=== PATIENT | female | born 1990 | race Caucasian/White ===

== ENCOUNTER → 2022-11-15 | Outpatient (CLI) | payer OTHER | END | disposition home or self-care (01) | LOC: NST 16:40 | PROVIDERS: ATTEND Obstetrics & Gynecology Gynecology | DX: Z34.83 Encounter for supervision of other normal pregnancy, third trimester (principal) ==

== ENCOUNTER 2022-11-26 17:35 | Outpatient (CLI) | payer OTHER ==
[~2022-11-26] VITALS: Ht 157.5 cm; Wt 81.6 kg
[2022-11-26] MEDS ORDERED: PEPCID AC20 MG PO (18:20)
[2022-11-26] MEDS ORDERED: PRENATAL TABLE1 EAC4 PO (18:20)
[2022-11-26] MEDS ORDERED: VALACYCLOVIR1000 MG PO (18:22)
== END 2022-11-27 11:10 | disposition home or self-care (01) ==
LOC: OBS/DEL 17:35 → LDR 17:35 → OBS/DEL 11-27 11:10 → LDR 11-27 11:10 → EDSTATUS 11-28 15:27
PROVIDERS: ATTEND Obstetrics & Gynecology Gynecology
PROC: 4A1HXCZ Monitoring of Products of Conception, Cardiac Rate, External Approach (ICD-10-PCS; principal; 2022-11-26)
DX: O16.2 Unspecified maternal hypertension, second trimester (principal); Z3A.37 37 weeks gestation of pregnancy; Z20.822 Contact with and (suspected) exposure to COVID-19

== ENCOUNTER 2022-11-29 14:21 | Inpatient (IN) | payer OTHER ==
[~2022-11-29] VITALS: Ht 157.5 cm; Wt 79.8 kg
[~2022-11-29 14:21] MED LIST: PEPCID AC20 MG PO; PRENATAL TABLE1 EAC4 PO; VALACYCLOVIR1000 MG PO
== END 2022-12-01 11:32 | disposition home or self-care (01) | DRG 833 ==
LOC: LDR 14:21 → OB/GYN 19:57
PROVIDERS: ADMIT Obstetrics & Gynecology Gynecology; ATTEND Obstetrics & Gynecology Gynecology
PROC: 4A1HXCZ Monitoring of Products of Conception, Cardiac Rate, External Approach (ICD-10-PCS; principal; 2022-11-29)
DX: O16.3 Unspecified maternal hypertension, third trimester (principal); Z3A.37 37 weeks gestation of pregnancy; Z20.822 Contact with and (suspected) exposure to COVID-19

== ENCOUNTER 2022-12-03 12:49 | Inpatient (IN) | payer OTHER ==
[~2022-12-03] VITALS: Ht 157.5 cm; Wt 1.8 kg
== END 2022-12-06 13:31 | disposition home or self-care (01) | DRG 807 ==
LOC: LDR 12:49 → OB/GYN 12-04 18:40
PROVIDERS: ADMIT Obstetrics & Gynecology Gynecology; ATTEND Obstetrics & Gynecology Gynecology
PROC: 4A1HXCZ Monitoring of Products of Conception, Cardiac Rate, External Approach (ICD-10-PCS; 2022-12-03)
PROC: 10E0XZZ Delivery of Products of Conception, External Approach (ICD-10-PCS; principal; 2022-12-04)
PROC: 0UQMXZZ Repair Vulva, External Approach (ICD-10-PCS; 2022-12-04)
DX: O70.0 First degree perineal laceration during delivery (principal); O13.4 Gestational [pregnancy-induced] hypertension without significant proteinuria, complicating childbirth; Z37.0 Single live birth; Z3A.38 38 weeks gestation of pregnancy